=== PATIENT | female | born 1960 | race Caucasian/White ===

== ENCOUNTER 2017-08-24 08:41 | Observation (INO) | payer OTHER ==
[~2017-08-24] VITALS: Ht 165.1 cm; Wt 70.0 kg
[2017-08-24] VITALS (20 sets, daily range): BP systolic 145–194; BP diastolic 80–112; PULSE 66–90; RESP 16–24; TEMP 97.5–99.1; O2SAT 96–100
[2017-08-24 09:41] LABS: AUTOMATED NEUTROPHIL # 3.4 TH/MM3 (1.8-7.7); BASOPHIL # 0.1 TH/MM3 (0-0.2); EOSINOPHIL # 0.6 TH/MM3 (0-0.4); EOSINOPHIL % 10.2 % (0.0-4.0); HEMATOCRIT 22.9 % (35.0-46.0); LYMPH % 21.3 % (9.0-44.0); LYMPHOCYTE # 1.2 TH/MM3 (1.0-4.8); MEAN CELL VOLUME 69.3 FL (80.0-100.0); MEAN CORPUSCULAR HEMOGLOBIN 20.6 PG (27.0-34.0); MEAN CORPUSCULAR HGB CONC 29.7 % (32.0-36.0); MEAN PLATELET VOLUME 7.7 FL (7.0-11.0); MONO % 8.6 % (0.0-8.0); MONOCYTE # 0.5 TH/MM3 (0-0.9); NEUT % 57.9 % (16.0-70.0); PLATELET COUNT 366 TH/MM3 (150-450); RED CELL DISTRIBUTION WIDTH 19.9 % (11.6-17.2); WHITE BLOOD COUNT 5.8 TH/MM3 (4.0-11.0)
[2017-08-24 09:43] LABS: HEMOGLOBIN 6.8 GM/DL (11.6-15.3)
[2017-08-24 10:00] LABS: ALBUMIN 3.9 GM/DL (3.4-5.0); ALT (GPT) 59 U/L (10-53); AST (GOT) 36 U/L (15-37); BICARBONATE 25.6 MEQ/L (21.0-32.0); BLOOD UREA NITROGEN 13 MG/DL (7-18); CALCIUM 9.2 MG/DL (8.5-10.1); CHLORIDE 105 MEQ/L (98-107); CREATININE 0.97 MG/DL (0.50-1.00); GLOMERULAR FILTRATION RATE 59 ML/MIN (>89); GLUCOSE,RANDOM 119 MG/DL (74-106); SODIUM (NA) 139 MEQ/L (136-145)
[2017-08-24 10:02] LABS: ALKALINE PHOSPHATASE 73 U/L (45-117); TOTAL BILIRUBIN ADULT 0.3 MG/DL (0.2-1.0); TOTAL PROTEIN 7.5 GM/DL (6.4-8.2)
[2017-08-24] MEDS ORDERED: SODIUM CHLOR 0.9% 250 ML INJ 250 ML IV ONE (10:45)
[2017-08-24] MEDS ORDERED: LISI-515 PO (10:46)
[2017-08-24 11:29] LABS: PROTHROMBIN TIME - PATIENT 10.3 SEC (9.8-11.6)
--- NOTE | 2017-08-24 14:46 | PD ---
HPI Chief Complaint: Abnormal Results Time Seen by Provider: 10:13 Travel History International Travel<30 days: No Contact w/Intl Traveler<30days: No Traveled to known affect area: No History of Present Illness HPI Patient is a 57 year old female who comes in, sent by her doctor, due to low Hgb. She says she has not had any symptoms other than a day of dizziness a few days ago. She says she went to her doctor due to the dizziness and she ordered the blood work which showed anemia and she was told to come in for a blood transfusion. She says she had an incident of GI bleeding 10 years ago, but has not had any issues since. She has been taking Iron for the past few days. She denies chest pain, SOB, palpitations. Severity is mild to moderate. PFSH Past Medical History Diminished Hearing: No Hypertension: Yes ?: Not : 2 Para: 2 Tubal Ligation: Yes Past Surgical History Tonsillectomy: Yes Social History Alcohol Use: Yes Tobacco Use: No Substance Use: No Allergies-Medications (Allergen,Severity, Reaction): Coded Allergies: No Known Allergies (Unverified Adverse Reaction, Unknown, 08/24/17) Reported Meds & Prescriptions Reported Meds & Active Scripts Active Reported Lisinopril 20 Mg Tab 20 Mg PO DAILY Review of Systems Except as stated in HPI: all other systems reviewed are Neg General / Constitutional: No: Fever, Chills Eyes: No: Blurred Vision HENT: Positive: Lightheadedness, No: Headaches Cardiovascular: No: Chest Pain or Discomfort, Palpitations Respiratory: No: Shortness of Breath Gastrointestinal: No: Nausea, Vomiting Musculoskeletal: No: Myalgias, Edema Skin: No Rash, No Change in Pigmentation Neurologic: Positive: Dizziness Physical Exam Narrative GENERAL: Awake and alert, in no acute distress. SKIN: Focused skin assessment warm/dry. HEAD: Atraumatic. Normocephalic. EYES: Pupils equal and round. No scleral icterus. Pale conjunctiva. ENT: Mucous membranes pink and moist. NECK: Trachea midline. No JVD. CARDIOVASCULAR: Regular rate and rhythm. No murmur appreciated. RESPIRATORY: No accessory muscle use. Clear to auscultation. Breath sounds equal bilaterally. GASTROINTESTINAL: Abdomen soft, non-tender, nondistended. MUSCULOSKELETAL: No obvious deformities. No clubbing. No cyanosis. No edema. NEUROLOGICAL: Awake and alert. No obvious cranial nerve deficits. Motor grossly within normal limits. Normal speech. PSYCHIATRIC: Appropriate mood and affect; insight and judgment normal. Data Data Last Documented VS Vital Signs Date Time Temp Pulse Resp B/P (MAP) Pulse Ox O2 Delivery O2 Flow Rate FiO2 08/24/17 14:19 98.5 71 16 177/98 97 08/24/17 13:49 Room Air Orders Orders Complete Blood Count With Diff (08/24/17 08:49) Comprehensive Metabolic Panel (08/24/17 08:49) Prothrombin Time / Inr (Pt) (08/24/17 08:49) Act Partial Throm Time (Ptt) (08/24/17 08:49) Ecg Monitoring (08/24/17 08:49) Orthostatic Vital Signs (08/24/17 08:49) Type And Screen (08/24/17 08:49) Red Blood Cells (Rbc) (08/24/17 10:40) Blood Product Administration (08/24/17 10:40) Sodium Chlor 0.9% 250 Ml Inj (Ns 250 Ml (08/24/17 10:45) Labs Laboratory Tests Test 08/24/17 08:54 08/24/17 10:51 White Blood Count 5.8 TH/MM3 Red Blood Count 3.30 MIL/MM3 Hemoglobin 6.8 GM/DL Hematocrit 22.9 % Mean Corpuscular Volume 69.3 FL Mean Corpuscular Hemoglobin 20.6 PG Mean Corpuscular Hemoglobin Concent 29.7 % Red Cell Distribution Width 19.9 % Platelet Count 366 TH/MM3 Mean Platelet Volume 7.7 FL Neutrophils (%) (Auto) 57.9 % Lymphocytes (%) (Auto) 21.3 % Monocytes (%) (Auto) 8.6 % Eosinophils (%) (Auto) 10.2 % Basophils (%) (Auto) 2.0 % Neutrophils # (Auto) 3.4 TH/MM3 Lymphocytes # (Auto) 1.2 TH/MM3 Monocytes # (Auto) 0.5 TH/MM3 Eosinophils # (Auto) 0.6 TH/MM3 Basophils # (Auto) 0.1 TH/MM3 CBC Comment DIFF FINAL Differential Comment Blood Urea Nitrogen 13 MG/DL Creatinine 0.97 MG/DL Random Glucose 119 MG/DL Total Protein 7.5 GM/DL Albumin 3.9 GM/DL Calcium Level 9.2 MG/DL Alkaline Phosphatase 73 U/L Aspartate Amino Transf (AST/SGOT) 36 U/L Alanine Aminotransferase (ALT/SGPT) 59 U/L Total Bilirubin 0.3 MG/DL Sodium Level 139 MEQ/L Potassium Level 4.3 MEQ/L Chloride Level 105 MEQ/L Carbon Dioxide Level 25.6 MEQ/L Anion Gap 8 MEQ/L Estimat Glomerular Filtration Rate 59 ML/MIN Prothrombin Time 10.3 SEC Prothromb Time International Ratio 1.0 RATIO Activated Partial Thromboplast Time 19.8 SEC MDM Medical Decision Making Medical Screen Exam Complete: Yes Emergency Medical Condition: Yes Differential Diagnosis GI bleed vs PUD vs anemia Narrative Course Patient is a 57 year old female, sent in by her PMD for low Hgb. Exam shows pale conjunctiva. IV established, labs sent. Labs show a Hgb of 6.8. She is given 2 units of blood. Admitted for further management. HemaPrompt Point of Care Internal Pos. & Neg. Controls: Passed Fecal Specimen Occult Blood: Negative Diagnosis Primary Impression: Anemia Qualified Codes: D64.9 - Anemia, unspecified Admitting Information Admitting Physician Requests: it Loida Mccormack MD Aug 24, 2017 14:46
--- NOTE | 2017-08-24 17:36 | HHI.HP ---
HPI Service CP Hospitalists Primary Care Physician Mariaelena Minor MD Admission Diagnosis Anemia Chief Complaint: abnormal labs Travel History International Travel<30 Days: No Contact w/Intl Traveler <30 Da: No Traveled to Known Affected Are: No History of Present Illness Pt is 57 yo with pmh htn and gib 9yrs ago. Pt says she was recently taken off of her bp meds which was lisinipril 20mg daily. She had routine labs last week and hgb noted to be around 6. Pt called but was out of town on vacation. Denies any cp/sob/dizziness/sob/weakness. No vaginal or rectal bleeding. not taking alot of nsaids or etoh. Denies any abdomen pain, n/v/d. Pt was sent to ED and when I saw her she had already received 1 unit blood and about to get number 2. stool guiac in ED neg for blood. She is refusing observation in the hospital as she is asymptomatic. We explained the severe nature of her anemia and that we couldn't gaurantee worsening of her condition. She is very anxious and just want to get out of here. her blood pressure systolic is around 190. Review of Systems Other abnormal labs Past Family Social History Past Medical History htn rectal bleed 9 yrs ago...pt reports a colonoscopy at that time with "polyps" but reports to me no specifically identified bleeding. Past Surgical History heart reg lung cta abd s/nt/nabs ext no edema Allergies: Coded Allergies: No Known Allergies (Unverified Adverse Reaction, Unknown, 08/24/17) Physical Exam Vital Signs Vital Signs Date Time Temp Pulse Resp B/P (MAP) Pulse Ox O2 Delivery O2 Flow Rate FiO2 08/24/17 17:22 97.5 74 22 194/93 99 08/24/17 17:18 97.5 76 22 194/93 (126) 97 Room Air 08/24/17 17:04 97.7 73 16 191/107 100 08/24/17 16:00 70 21 180/99 (126) 99 Room Air 08/24/17 15:30 78 21 185/112 (136) 100 Room Air 08/24/17 15:00 72 23 169/103 (125) 98 Room Air 08/24/17 14:30 74 22 183/106 (131) 98 Room Air 08/24/17 14:19 98.5 71 16 177/98 97 08/24/17 14:00 68 18 162/97 (118) 96 Room Air 08/24/17 13:49 98.7 73 23 158/94 (115) 99 Room Air 08/24/17 13:45 98.7 73 24 158/94 99 08/24/17 12:55 99.1 73 20 169/94 98 08/24/17 12:39 98.5 73 19 145/81 99 08/24/17 12:31 98.5 77 24 152/82 (105) 99 Room Air 08/24/17 10:42 81 21 176/88 (117) 99 Room Air 08/24/17 08:44 98.2 90 16 175/80 (111) 99 Laboratory Laboratory Tests Test 08/24/17 08:54 08/24/17 10:51 White Blood Count 5.8 Red Blood Count 3.30 Hemoglobin 6.8 Hematocrit 22.9 Mean Corpuscular Volume 69.3 Mean Corpuscular Hemoglobin 20.6 Mean Corpuscular Hemoglobin Concent 29.7 Red Cell Distribution Width 19.9 Platelet Count 366 Mean Platelet Volume 7.7 Neutrophils (%) (Auto) 57.9 Lymphocytes (%) (Auto) 21.3 Monocytes (%) (Auto) 8.6 Eosinophils (%) (Auto) 10.2 Basophils (%) (Auto) 2.0 Neutrophils # (Auto) 3.4 Lymphocytes # (Auto) 1.2 Monocytes # (Auto) 0.5 Eosinophils # (Auto) 0.6 Basophils # (Auto) 0.1 CBC Comment DIFF FINAL Differential Comment Blood Urea Nitrogen 13 Creatinine 0.97 Random Glucose 119 Total Protein 7.5 Albumin 3.9 Calcium Level 9.2 Alkaline Phosphatase 73 Aspartate Amino Transf (AST/SGOT) 36 Alanine Aminotransferase (ALT/SGPT) 59 Total Bilirubin 0.3 Sodium Level 139 Potassium Level 4.3 Chloride Level 105 Carbon Dioxide Level 25.6 Anion Gap 8 Estimat Glomerular Filtration Rate 59 Prothrombin Time 10.3 Prothromb Time International Ratio 1.0 Activated Partial Thromboplast Time 19.8 Result Diagram: 08/24/1754 08/24/17 0854 Caprini VTE Risk Assessment Caprini VTE Risk Assessment: No/Low Risk (score <= 1) Caprini Risk Assessment Model Point Value = 1 Point Value = 2 Point Value = 3 Point Value = 5 Age 41-60 Minor surgery BMI > 25 kg/m2 Swollen legs Varicose veins or History of unexplained or recurrent spontaneous Oral contraceptives or hormone replacement Sepsis (< 1 month) Serious lung disease, including pneumonia (< 1 month) Abnormal pulmonary function Acute myocardial infarction Congestive heart failure (< 1 month) History of inflammatory bowel disease Medical patient at bed rest Age 61-74 Arthroscopic surgery Major open surgery (> 45 min) Laparoscopic surgery (> 45 min) Malignancy Confined to bed (> 72 hours) Immobilizing plaster cast Central venous access Age >= 75 History of VTE Family history of VTE Factor V Leiden Prothrombin [id number] Lupus anticoagulant Anticardiolipin antibodies Elevated serum homocysteine Heparin-induced thrombocytopenia Other congenital or acquired thrombophilia Stroke (< 1 month) Elective arthroplasty Hip, pelvis, or leg fracture Acute spinal cord injury (< 1 month) Prophylaxis Regimen Total Risk Factor Score Risk Level Prophylaxis Regimen 0-1 Low Early ambulation 2 Moderate Order ONE of the following: *Sequential Compression Device (SCD) *Heparin 5000 units SQ BID 3-4 Higher Order ONE of the following medications: *Heparin 5000 units SQ TID *Enoxaparin/Lovenox 40 mg SQ daily (WT < 150 kg, CrCl > 30 mL/min) *Enoxaparin/Lovenox 30 mg SQ daily (WT < 150 kg, CrCl > 10-29 mL/min) *Enoxaparin/Lovenox 30 mg SQ BID (WT < 150 kg, CrCl > 30 mL/min) AND/OR *Sequential Compression Device (SCD) 5 or more Highest Order ONE of the following medications: *Heparin 5000 units SQ TID (Preferred with Epidurals) *Enoxaparin/Lovenox 40 mg SQ daily (WT < 150 kg, CrCl > 30 mL/min) *Enoxaparin/Lovenox 30 mg SQ daily (WT < 150 kg, CrCl > 10-29 mL/min) *Enoxaparin/Lovenox 30 mg SQ BID (WT < 150 kg, CrCl > 30 mL/min) AND *Sequential Compression Device (SCD) Assessment and Plan Problem List: (1) Anemia ICD Codes: D64.9 - Anemia, unspecified Status: Acute Plan: Pt is 57 yo who is sent to ED for hgb 6 and microcytic anemia. No obvious blood loss and stool guiac negative She is currently asymptomatic had a colonoscopy "9yrs ago" due to bleed I had a long talk with her regarding anemia w/up and likely involvement of GI and Hematology. She is getting 2 units blood in ED. She absolutely refuses admission overnight. She again is asymptomatic and wants to just fu with pcp. I called pcp and we agreed the pt would be served best with observation here. She will make the appropriate outpt referral. Pt bp is rising and she is taking her usual home dose of lisinipril now. She will go home after the blood is transfused and call her doctor. Problem Qualifiers (1) Anemia: Qualified Codes: D64.9 - Anemia, unspecified Andre Joiner MD Aug 24, 2017 17:36
== END 2017-08-24 20:25 | disposition home or self-care (01) ==
LOC: NEPE 08:41 → NEDA 15:33
PROVIDERS: ADMIT Hospitalist; ATTEND Hospitalist
DX: D50.9 Iron deficiency anemia, unspecified (principal); I10 Essential (primary) hypertension
CPT/HCPCS: 36430; 80053; 85025; 85610; 85730; 86850; 86900; 86901; 86920; 99285; G0378; J7050; P9016